=== PATIENT | male | born 1930 | race Caucasian/White ===

== ENCOUNTER 2016-10-07 07:35 | Day surgery (SDC) | payer OTHER, MEDICARE ==
[2016-10-07] MEDS ORDERED: LIDOCAINE 1% 2 ML INJ ONE (07:56)
[2016-10-07] MEDS ORDERED: LIDOCAINE 1% 2 ML INJ ID PRN (08:05)
[2016-10-07] MEDS ORDERED: LR 1,000 ML IV ONE (08:05)
--- NOTE | 2016-10-07 08:21 | PDGENHP ---
History & Physical Chief Complaint: hx of appendix cancer History of Present Illness: Needs colonoscopy f/u of appendiceal rupture Relevant Physical Exam: GEN: NAD. Cardiac: RRR. Lungs: CTA B. Abd: Soft, nt, nd
--- NOTE | 2016-10-07 08:42 | PDANEPAE ---
ANE History of Present Illness 86 yo M here for surveillance colonoscopy, h/o appendiceal malignancy ANE Past Medical History - Cardiovascular History Hx Hypertension: Yes Hx Coronary Artery / Peripheral Vascular Disease: Yes - Pulmonary History Hx COPD: No Hx Asthma/Reactive Airway Disease: No Hx Recent Upper Respiratory Infection: No Hx Oxygen in Use at Home: No - Neurologic History Hx Cerebrovascular Accident: No Hx Seizures: No Hx Dementia: No - Endocrine History Hx Diabetes: Yes - Renal History Hx Renal Disorders: Yes - Liver History Hx Hepatic Disorders: No - Neurological & Psychiatric Hx Hx Neurological and Psychiatric Disorders: No - Cancer History Hx Cancer: Yes - Congenital Disorder History Hx Congenital Disorders: No - GI History Hx Gastrointestinal Disorders: Yes - Chronic Pain History Chronic Pain: No ANE Review of Systems - Exercise capacity METS (RN): 4 METS ANE Patient History - Allergies Allergies/Adverse Reactions: No Known Allergies Allergy (Verified 10/16/11 13:39) - Home Medications Home medications: home medication list seen and reviewed Home Medications: Allopurinol 10/02/16 [Last Taken 10/06/16] Aspirin 10/02/16 [Last Taken 10/02/16] Celebrex 10/02/16 [Last Taken 10/06/16] Glucophage 500 mg (*) 10/02/16 [Last Taken 10/06/16] Lisinopril 10/02/16 [Last Taken 10/06/16] Metoprolol Succinate 10/02/16 [Last Taken 10/06/16] Plavix 10/02/16 [Last Taken 10/02/16] Simvastatin 10/02/16 [Last Taken 10/06/16] - NPO status NPO Since - Liquids (Date): 10/06/16 NPO Since - Liquids (Time): 18:00 NPO Since - Solids (Date): 10/06/16 NPO Since - Solids (Time): 12:00 - Anes Hx Anes Hx: no prior problems - Smoking Hx Smoking Status: Never smoked - Family Anes Hx Family Anes Hx: none ANE Labs/Vital Signs - Labs Result Diagrams: 10/07/16 08:28 - Vital Signs Blood Pressure: 127/93 Heart Rate: 80 Respiratory Rate: 16 O2 Sat (%): 92 Height: 189.23 cm Weight: 89.811 kg ANE Physical Exam - Airway Neck exam: decreased ROM Mallampati Score: Class 3 Mouth exam: dentures - Pulmonary Pulmonary: no respiratory distress, clear to auscultation - Cardiovascular Cardiovascular: regular rate and rhythym - ASA Status ASA Status: III ANE Anesthesia Plan Anesthesia Plan: MAC
[2016-10-07] MEDS ORDERED: PROPOFOL/EMULSION 500 MG/50 ML BOTTLE IV ONE (08:49)
[2016-10-07 08:54] LABS: ANION GAP 11 mEq/L (8-16); CARBON DIOXIDE 20 mEq/l (22-31); CHLORIDE 106 mEq/L (97-110); CREATININE 1.3 mg/dL (0.7-1.3); GLOMERULAR FILTRATION RATE 52; GLUCOSE 123 mg/dL (70-100); POTASSIUM 4.9 mEq/L (3.5-5.2); SODIUM 137 mEq/L (134-144)
[2016-10-07] MEDS ORDERED: ACETAMINOPHEN 500 MG TAB PO PRN (09:26)
[2016-10-07] MEDS ORDERED: ONDANSETRON 4 MG/2 ML VIAL IVP PRN (09:26)
[2016-10-07] MEDS ORDERED: NALOXONE HCL 0.4 MG/ML INJ IVP PRN (09:26)
--- NOTE | 2016-10-07 09:34 | POSTOPPROG ---
Post Op Note Date of Operation: 10/07/16 Surgeon: Yaya Alonso Pre-op Diagnosis: hx of appendix cancer Post-op Diagnosis: same, diverticulosis Indication: hx of appendix cancer Procedure: Colonoscopy Findings: Diverticulosis Inf/Abcess present in the surg proc area at time of surgery?: No
[2016-10-07 10:49] VITALS: RESP 20; TEMP 98.2
[2016-10-07 10:52] VITALS: BP 133/86
[2016-10-07 11:24] VITALS: PULSE 68; O2SAT 96
--- NOTE | 2016-10-07 13:47 | POSTANESTH ---
Post Anesthetic Evaluation Cardiovascular Status: Normal, Stable, Similar to Pre-Op Cond Respiratory Status: Normal, Stable, Similar to Pre-op Cond. Level of Consciousness/Mental Status: Can Participate in Eval, Alert and Oriented Pain Control: Adequate, Prn Tx Ordered Nausea/Vomiting Control: Adequate, Prn Tx Ordered Complications Possibly Related to Anesthesia: None Noted
--- NOTE | 2016-10-07 15:57 | GPN ---
[f rep st] PROCEDURE NOTE PREPROCEDURE DIAGNOSIS: Appendiceal cancer. POSTPROCEDURE DIAGNOSIS: Diverticulosis. No evidence of recurrent or residual appendiceal cancer. PROCEDURE: Colonoscopy. MEDICATIONS: Monitored anesthesia care. 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 He has had no evidence of recurrence. He is here today for colonoscopy for surveillance. The risks and the benefits of the procedure were discussed with the patient. Consent obtained. The risks include, but not limited to, bleeding , perforation, sedation. The patient is ASA class 3. DESCRIPTION OF PROCEDURE: The pediatric colonoscope was advanced into the terminal ileum, which appears normal. The appendiceal orifice, cecum, IC valve , ascending colon, hepatic flexure, transverse colon, splenic flexure appeared normal. He has scattered diverticula in the sigmoid and descending colon. Retroflexed views in the rectum were normal. IMPRESSION: 1. No evidence of residual or recurrent appendiceal cancer. 2. Moderate left-sided diverticulosis. RECOMMENDATION: 1. Discharge home with escort. 2. Advance diet as tolerated. 3. Continue current medications. 4. Repeat colonoscopy to be determined by his oncologist. Thank you for allowing me to participate in the care of your patient. Please do not hesitate to call with questions. /[id number]/MODL MTDD
== END 2016-10-07 11:25 | disposition home or self-care (01) ==
LOC: FSGY 07:35
PROVIDERS: ATTEND Internal Medicine Gastroenterology
DX: Z85.038 Personal history of other malignant neoplasm of large intestine (principal); K57.30 Diverticulosis of large intestine without perforation or abscess without bleeding
CPT/HCPCS: J2704